=== PATIENT | male | born 1950 | race Caucasian/White ===

== ENCOUNTER → 2019-07-01 | Outpatient (CLI) | payer OTHER, MEDICARE | LOC: M.MRI 08:27 | DX: S83.281A Other tear of lateral meniscus, current injury, right knee, initial encounter (principal); M17.11 Unilateral primary osteoarthritis, right knee; M25.461 Effusion, right knee; R60.0 Localized edema; M25.761 Osteophyte, right knee; X58.XXXA Exposure to other specified factors, initial encounter; Y93.89 Activity, other specified; Y92.89 Other specified places as the place of occurrence of the external cause; Y99.8 Other external cause status ==

== ENCOUNTER 2019-09-24 06:49 | Observation (INO) | payer OTHER, MEDICARE ==
[2019-09-12 08:59] LABS: HEMATOCRIT 50.2 % (42.0-52.0); HEMOGLOBIN 17.5 gm/dL (14.0-18.0); MCH 29.2 pg (26.0-34.0); MCHC 34.8 g/dL (28.0-37.0); MCV 83.8 fL (80.0-100.0); RBC 5.98 mil/uL (4.50-6.00); RDW-CV 13.6 % (10.5-14.5); WBC 7.7 thou/uL (4.0-11.0)
[2019-09-12 09:09] LABS: INR 1.1; PROTIME 11.2 Seconds (9.20-11.50)
[2019-09-12 09:24] LABS: ALBUMIN 3.9 g/dL (3.4-5.0); CALCIUM 8.8 mg/dL (8.5-10.1); CREATININE 1.1 mg/dL (0.6-1.3); POTASSIUM 3.7 mmol/L (3.5-5.1); TOTAL BILIRUBIN 0.9 mg/dL (<0.1-1.0); TOTAL PROTEIN 7.8 g/dL (6.4-8.2)
[2019-09-12 09:40] LABS: URINE BILIRUBIN NEGATIVE (Negative); URINE BLOOD NEGATIVE (Negative); URINE CLARITY CLEAR; URINE COLOR YELLOW; URINE GLUCOSE-RANDOM NEGATIVE (Negative); URINE KETONES NEGATIVE (Negative); URINE LEUKOCYTES-REFLEX NEGATIVE (Negative); URINE NITRITE-REFLEX NEGATIVE (Negative); URINE PROTEIN NEGATIVE (Negative); URINE UROBILINOGEN 0.2 E.U./dl (0.2-1.0)
--- NOTE | 2019-09-12 11:21 | EKG ---
[place] [address] ELECTROCARDIOGRAM REPORT Name: DAVID LOPEZ Room: PRE IN .R.#: [id number] Admission: Attend Phys: Marilee Giang Discharge: Date of : 54 Report #: [id number] THIS REPORT FOR: //name// [facility] Test Date: 2019-09-12 Test Time: 09:16:41 Pat Name: DAVID LOPEZ Department: Room: Gender: M Data Center Engineer: : 1950 Requested By: Emery Wagner Order Number: [id number] Reading MD: Bar Butterfield Measurements Intervals [place] Rate: 80 P: [place]: QRS: 35 QRSD: 97 T: 30 QT: 374 QTc: 432 Interpretive Statements Atrial fibrillation Borderline low voltage, extremity leads No previous ECG available for comparison Electronically Signed On 09-12-2019 11:20:55 CDT by Bar Butterfield [email or web address] <ELECTRONICALLY SIGNED> By: Bar Butterfield MD, [facility] 09/12/19 1120 0916 09 Bar Butterfield MD, FACC /EPI
[~2019-09-24] VITALS: Ht 180.3 cm; Wt 113.9 kg
[~2019-09-24 06:49] MED LIST: ASPIR 8181 MG PO; MULTIVITAMINS PO; SIMVASTATIN20 MG PO; UROXATRAL PO; ZESTRIL20 MG PO
[2019-09-24 11:45] VITALS: BP 109/65
[2019-09-24 16:00] VITALS: BP 126/78
--- NOTE | 2019-09-24 17:52 | 2DMMODE ---
[place] [address] 2 D/M-MODE ECHOCARDIOGRAM Name: JESSICADAVID Room: [address] Sofia#: [id number] Admission: 09/24/19 Attend Phys: Cj Schaefer Discharge: Date of : 54 Date of Service: 09/24/19 1752 Report #: [id number] THIS REPORT FOR: //name// APPROVED REPORT Study performed: 09/24/2019 14:58:53 EXAM: Comprehensive 2D, Doppler, and color-flow Echocardiogram Patient Location: In-Patient Room #: 108 Status: routine BSA: 2.32 HR: 78 bpm BP: 109/65 mmHg Rhythm: Atrial Fibrillation Other Information Study Quality: Good Indications Atrial Fibrillation 2D Dimensions IVSd: 8.28 (7-11mm) LVOT Diam: 23.25 (18-24mm) LVDd: 42.37 mm PWd: 11.10 (7-11mm) Ascending Ao: 33.34 (22-36mm) LVDs: 25.96 (25-40mm) Aortic Root: 34.94 mm Volumes Left Atrial Volume (Systole) LA ESV Index: 40.40 mL/m2 Aortic Valve AoV Peak Gurdeep.: 1.24 m/s AO Peak Gr.: 6.16 mmHg LVOT Max P.71 mmHg AO Mean Gr.: 3.41 mmHg LVOT Mean P.13 mmHg LVOT Max V: 1.09 m/s AO V2 VTI: 24.85 cm LVOT Mean V: 0.66 m/s SHRUTHI (VTI): 3.87 cm2 LVOT V1 VTI: 22.63 cm TDI Medial E' Gurdeep.: 0.12 m/s Lateral E' Gurdeep.: 0.14 m/[place] [address] 2 D/M-MODE ECHOCARDIOGRAM Name: DAVID LOPEZ Room: [address]#: [id number] Admission: 09/24/19 Attend Phys: Cj Schaefer Discharge: Date of : 54 Date of Service: 09/24/19 175 Report #: [id number] Pulmonary Valve PV Peak Gurdeep.: 0.92 m/s PV Peak Gr.: 3.36 mmHg Tricuspid Valve RAP Estimate: 5.00 mmHg TR Peak Gr.: 22.33 mmHg RVSP: 27.00 mmHg PA Pressure: 27.00 mmHg Left Ventricle The left ventricle is normal size. There is normal LV segmental wall motion. There is normal left ventricular wall thickness. Left ventricular systolic function is normal. LVEF is 60-65%. This study is not technically sufficient to allow evaluation of the LV diastolic function due to atrial fibrillation. Right Ventricle Right ventricle is mildly dilated. The right ventricular systolic function is normal. Atria Left atrium is mildly dilated. Right atrium is dilated. Aortic Valve The aortic valve is normal in structure. No aortic regurgitation is present. There is no aortic valvular stenosis. Mitral Valve The mitral valve is normal in structure. Trace mitral regurgitation. No evidence of mitral valve stenosis. Tricuspid Valve The tricuspid valve is normal in structure. Trace tricuspid regurgitation. No pulmonary hypertension. Pulmonic Valve The pulmonary valve is normal in structure. There is no pulmonic valvular regurgitation. Great Vessels The aortic root is normal in size. IVC is normal in size and collapses >50% with inspiration. Pericardium There is no pericardial effusion. <Conclusion> [place] [address] 2 D/M-MODE ECHOCARDIOGRAM Name: DAVID LOPEZ Room: [address] Sofia#: [id number] Admission: 09/24/19 Attend Phys: Cj Schaefer Discharge: Date of : 54 Date of Service: 09/24/19 1752 Report #: [id number] The left ventricle is normal size. There is normal left ventricular wall thickness. Left ventricular systolic function is normal. LVEF is 60-65%. Left atrium is mildly dilated. Right atrium is dilated. Right ventricle is mildly dilated. Trace mitral regurgitation. Trace tricuspid regurgitation. No pulmonary hypertension. IVC is normal in size and collapses >50% with inspiration. <ELECTRONICALLY SIGNED> By: Bar Butterfield MD, FACC 09/24/191751 51 51 Bar Butterfield MD, FACC /INF
--- NOTE | 2019-09-24 18:09 | NUR ---
PATIENT ARRIVED TO UNIT AT 1145. ALERT AND ORIENTED X4. ASSESSMENT COMPLETED AND CHARTED. VSS ON 3 LITERS 02. PAIN MANAGED WITH ORAL PAIN MEDICATION. NO COMPLAINTS OF NAUSEA OR SOA. WORKED WITH THERAPIES TODAY AND PROGRESSED TOWARD GOALS. FALL PRECAUTIONS IN PLACE. CALL LIGHT WITHIN REACH. HOURL YROUNDS COMPLETED. NURSING WILL CONTINUE TO MONITOR.
[2019-09-25] VITALS: BP 133/113
[2019-09-25 04:00] VITALS: BP 101/56
[2019-09-25 05:27] LABS: HEMATOCRIT 43.4 % (42.0-52.0); HEMOGLOBIN 14.6 gm/dL (14.0-18.0)
[2019-09-25 05:47] LABS: CHOLESTEROL 158 mg/dL (<200); HDL CHOLESTEROL 41 mg/dL (>40); LDL CHOLESTEROL 106 mg/dL (<100); TC:HDL 3.9 Ratio (Not establshd); TRIGLYCERIDE 59 mg/dL (<150); VLDL 12 mg/dL (<40)
[2019-09-25 05:49] LABS: SERUM ASSESSMENT Clear
--- NOTE | 2019-09-25 07:08 | NUR ---
PATIENT HAS SLEPT OFF AND ON DURING THE NIGHT. VSS ON 3L 02 VIA NASAL CANNULA AND CAPNO IN PLACE. PAIN HAS BEEN WELL CONTROLLED. MEDICATIONS GIVEN ORDERED AND CHARTED. ASSESSMENT CHARTED. PATIENT PLACE ON CPM THIS AM AND TOLERATING WELL. DRESSING TO RIGHT KNEE IS C/D/I AND JOSE ANTONIO PETIT, SCD'S AND POLAR PACK IN PLACE. HEMOVAC IN PLACE WITH MODERATE AMOUNT OF DRAINAGE. IV IN LEFT FOREARM-SL. FALL PRECAUTIONS IN PLACE AND HOURLY ROUNDS MADE. WILL CONTINUE WITH PLAN OF CARE AND NURSING TO MONITOR.
--- NOTE | 2019-09-25 09:42 | NUR ---
RECIEVED O.T. EVAL AND TX ORDERS. WILL DEFER TO P.T. AT THIS TIME. PLEASE ORDER FURTHER O.T. SERVICES IF NEEDED.
--- NOTE | 2019-09-25 12:00 | NUR ---
SPOKE WITH PT.AND ,TREMAYNE. SHE HAD BEEN TALKING WITH [employer] TO SEE IF PT.COULD COME TO [facility] OUTPT.THERAPY. THEY SAID HE COULD. THEY ARE IN NETWORK AND COST PER EACH VISIT WOULD BE $30. PT.WOULD LIKE TO DO THIS, INSTEAD OF HOME HEALTH. CM PUT IN CALL TO OFFICE. THEY WILL CALL BACK. [facility] [employer] CALLED IN TO HIS PHARMACY , WRITTEN. COPAY IS $30.NEEDS A FRONT WHEEL WALKER FOR HOME. ELIZABETH/[employer] FOR PT. 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 PT.INFORMED. TO SEE PT.PRIOR TO DISCHARGE.
[2019-09-25] MEDS ORDERED: XARELTO10 MG PO (12:24)
[2019-09-25] MEDS ORDERED: CARVEDILOL12.5 MG PO (12:24)
[2019-09-25] MEDS ORDERED: HYDROCODON-ACE1 EAC7 PO (12:26)
[2019-09-25 12:27] VITALS: BP 101/56
--- NOTE | 2019-09-25 15:30 | NUR ---
ASSUMED CARE OF PATIENT AT APPROX 0730. ALERT AND ORIENTED X4. ASSESSMENT COMPLETED AND CHARTED. VSS ON ROOM AIR. PAIN MANAGED WITH ORAL PAIN MEDICATIONS. ANTIBIOTICS INFUSED ORDERED. NO OTHER COMPLAINTS THIS SHIFT. PATIENT WORKED WELL WITH THERAPIES AND PROGRESSED TOWARD GOALS. PATIENT DISCHARGED AT 1530 WITH ALL PERSONAL BELONGINGS, PRESCRIPTIONS AND DISCHARGE INFORMATION.
--- NOTE | 2019-09-25 16:38 | CON ---
[address] [address] CONSULTATION Name: DAVID LOPEZ Room: [address] Jimy Black#: [id number] Admission: 09/24/19 Attend Phys: Marilee Giang Discharge: 09/25/19 Date of : 54 Report #: [id number] THIS REPORT FOR: //name// CC: Allyson Schaefer DATE OF SERVICE: 09/25/2019 HISTORY OF PRESENT ILLNESS: The patient is a 68-year-old white male who I was asked to see in the hospital today after he was noted to be in atrial fibrillation. The patient has no previous history of heart disease. He does have a long history of hypertension, hyperlipidemia. Recently, he complained of knee pain. He was scheduled to undergo knee surgery. As part of a preop evaluation, he apparently underwent pharmacologic nuclear stress test at [facility] by [facility] about a year ago. The stress test apparently showed no significant coronary artery disease and he was felt to have a low risk for cardiac complications of surgery. The patient was then admitted here to [facility] 2 days ago and underwent knee replacement surgery. Of note is that the patient's preoperative ECG on 09/12/2019 showed atrial fibrillation. ECG today again shows atrial fibrillation. Cardiology consultation was requested. The patient is not very active, but denies any significant chest pain, shortness of breath, palpitations, syncope, bleeding. PAST MEDICAL HISTORY: He has had previous tonsillectomy, left knee replacement, hypertension, hyperlipidemia. MEDICATIONS: Consist of lisinopril HCT, simvastatin and Flomax. ALLERGIES: He has no known drug allergies. FAMILY HISTORY: Negative for heart disease. SOCIAL HISTORY: Retired painter structural steel. He and his live here in [place]. He quit smoking years ago, rarely drinks alcohol. REVIEW OF SYSTEMS: He has had no history of stroke, asthma, liver disease, GI bleeding, kidney disease, cancer, psychiatric illness, chronic skin condition. PHYSICAL EXAMINATION: GENERAL: Revealed an elderly male sitting in a chair. He appeared in no distress. VITAL SIGNS: His blood pressure 126/80, pulse 70, he is afebrile. HEENT: He was anicteric. Conjunctivae pink. Mucous membranes moist. NECK: Veins nondistended. No carotid bruits. Neck supple. CHEST: [place] [id number] CONSULTATION Name: JESSICADAVID [address]: [address] [id number] Admission: 09/24/19 Attend Phys: Marilee Giang Discharge: 09/25/19 Date of : 54 Report #: [id number] CARDIOVASCULAR: Irregular rhythm. No significant murmurs. ABDOMEN: Soft. EXTREMITIES: Had no pitting edema. SKIN: Cool and dry. NEUROLOGIC: Nonfocal. His preoperative ECG that was done here at [facility] on 09/12/2019 appears to show atrial fibrillation with controlled ventricular response rate. No significant ST or T-wave changes. Postop ECG done today again shows atrial fibrillation with controlled ventricular response rate. The patient had an echocardiogram done yesterday that showed left ventricular hypertrophy, 65%, biatrial enlargement. LABORATORY DATA: Potassium 3.7, creatinine 1.1. Cholesterol 158, triglyceride 59, HDL 41, LDL 106. TSH 1.7. White blood cell count 7.7, hemoglobin is 14.6. IMPRESSION AND RECOMMENDATIONS: 1. Atrial fibrillation, asymptomatic. I suspect the patient has sick sinus syndrome since the rate is controlled despite the fact that he is on no medications that slow atrioventricular node conduction. If he develops bradycardia, he would require pacemaker. The patient has a SKY score of 2. I would consider anticoagulation. The patient recently started on Xarelto post-knee surgery. After it is safe from a surgical standpoint, I think it is reasonable to increase his Xarelto to 20 mg a day to prevent an embolic event from permanent atrial fibrillation. 2. Hypertension. The patient is on an LUCAS inhibitor and diuretic. 3. Hyperlipidemia. The patient is on a statin drug. 4. Recent knee surgery. The patient is currently undergoing rehabilitation. <ELECTRONICALLY SIGNED> By: Giuliano Plunkett MD, FACC 09/25/19 1638 1344 [id number] Plunkett MD, FACC /nt
--- NOTE | 2019-09-25 16:48 | EKG ---
[place] [address] ELECTROCARDIOGRAM REPORT Name: JESSICADAVID Room: [address] M.R.#: [id number] Admission: 09/24/19 Attend Phys: Marilee Giang Discharge: 09/25/19 Date of : 54 Report #: [id number] THIS REPORT FOR: //name// [facility] Test Date: 2019-09-25 Test Time: 11:10:36 Pat Name: DAVID LOPEZ Department: Room: [address] Gender: M Resident Care Coordinator: : 1950 Requested By: Eleanor Echeverria Order Number: [id number] Adenike MD: Giuliano Plunkett Measurements Intervals [place] Rate: 72 P: [place]: QRS: 67 QRSD: 106 T: 35 QT: 404 QTc: 443 Interpretive Statements Atrial fibrillation Borderline low voltage, extremity leads Compared to ECG 09/12/2019 09:16:41 No significant changes Electronically Signed On 09-25-2019 16:48:44 PRESSURIZER by Giuliano Plunkett [email or web address] <ELECTRONICALLY SIGNED> By: Giuliano Plunkett MD, [facility] 09/25/19 1648 1110 111 Giuliano Plunkett MD, [facility] /EPI
--- NOTE | 2019-10-01 10:47 | OP ---
[facility] [address] [place] [address] OPERATIVE REPORT Name: JESSICADAVID MELENDEZ Room: [address] Jimy Black#: [id number] Admission: 09/24/19 Attend Phys: Marilee Giang Discharge: 09/25/19 Date of : 54 Report #: [id number] THIS REPORT FOR: //name// CC: Allyson Schaefer DATE OF SERVICE: 09/24/2019 PREOPERATIVE DIAGNOSIS: Right knee osteoarthritis. POSTOPERATIVE DIAGNOSIS: Right knee osteoarthritis. PROCEDURE: Right total knee arthroplasty. SURGEON: Emery Wagner II, DO. DOOR CLOSER: KEVIN Moreira. ANESTHESIA: General endotracheal. ESTIMATED BLOOD LOSS: 50 mL. ANTIBIOTICS: Ancef preoperatively. DRAINS: Medium Hemovac. COMPLICATIONS: None. CONDITION OF THE PATIENT: Stable to recovery room. IMPLANTS: Listed in operative record and progress note. BRIEF HISTORY: The patient is seen in preoperative area. Preop H and P was performed. Site was marked, questions were answered. Risks and benefits were discussed with the patient in detail about surgery. The patient wished to proceed, assuming all risks. DESCRIPTION OF PROCEDURE: The patient was taken to the operative suite and placed supine on the operative table, given appropriate anesthesia. A well-padded tourniquet applied to upper thigh, which was inflated to 300 mmHg after gravity exsanguination. The operative knee was sterilely prepped and draped. Surgery began by midline incision. This was carried down to the subcutaneous tissues. A medial parapatellar arthrotomy was performed and carried down to bone. The patella was then everted and excess soft tissue was removed from around the femur. Femoral cutting block was then applied, checked [facility] [address] [place] [id number] OPERATIVE REPORT Name: DAVID LOPEZ Room: [address] Jimy Black#: [id number] Admission: 09/24/19 Attend Phys: Marilee Giang Discharge: 09/25/19 Date of : 54 Report #: [id number] with a drop declan for rotational alignment, pinned in appropriate position and appropriate cuts were made. A 4-in-1 cutting block was then applied, checked for rotational alignment, pinned in appropriate position and appropriate cuts were made. The tibia was then exposed. Excess meniscus was removed. Retractor was placed on collateral ligaments. The tibial cutting block was then applied, pinned in appropriate position, checked with drop declan for rotational alignment and slope and appropriate cut was made. The tibial bone was removed. The tibial base plate was then applied, checked for rotational alignment with the drop declan and pinned in appropriate position. The femur was then applied and box cut was reamed. This was then trialed with appropriate spacer, which showed excellent fit and fill and excellent stability of the knee through all ranges of motion. The patella was then reamed in appropriate fashion and sized to appropriate size. Three peg holes were drilled and it was then trialed and showed excellent flexion, extension, excellent tracking of the patella within the groove. These trials were removed. The tibia was punched in appropriate fashion. Bone ends were cleansed with Pulsavac irrigation and cement was mixed and applied to final implants. These were then malleted in position, held the knee in extension and compressed to allow cement to cure. After it cured, excess was removed using a [place] and osteotome. Wound was then copiously irrigated and the final spacer was then malleted into position. The tourniquet was deflated. Hemostasis was maintained with electrocautery. Pain cocktail was injected. PRP gel was sprayed throughout the internal aspects of the knee. Medium Hemovac drain was applied. The capsule was closed with #2 FiberWire and #1 Vicryl in [id number] fashion. Skin was closed with 2-0 Vicryl and running 3-0 Monocryl. Dermabond and sterile dressing applied. Alexei wrap and PolarCare applied. The patient transported to recovery room in stable condition. Counts were correct throughout the procedure. <ELECTRONICALLY SIGNED> By: Emery Wagner II, DO 10/01/19 1047 [id number] Wagner II, DO /nt
== END 2019-09-25 15:30 | disposition home or self-care (01) ==
LOC: M.ORTHSURG 06:49 → M.TBA 07:06 → M.ORTHSURG 10:07 → EDSTATUS 15:29 → M.ORTHSURG 15:36
PROVIDERS: Orthopaedic Surgery; ADMIT Internal Medicine
DX: M17.11 Unilateral primary osteoarthritis, right knee (principal); I10 Essential (primary) hypertension; I48.91 Unspecified atrial fibrillation; E78.5 Hyperlipidemia, unspecified; Z79.82 Long term (current) use of aspirin; Z79.899 Other long term (current) drug therapy; Z87.891 Personal history of nicotine dependence; Z96.652 Presence of left artificial knee joint

== ENCOUNTER → 2019-10-03 | Outpatient (CLI) | payer OTHER, MEDICARE ==
[~2019-10-03] MED LIST changes: +CARVEDILOL12.5 MG PO; +HYDROCODON-ACE1 EAC7 PO; +XARELTO10 MG PO
== END ==
LOC: M.RAD 13:12
DX: M25.561 Pain in right knee (principal); Z96.651 Presence of right artificial knee joint

== ENCOUNTER → 2019-11-01 | Outpatient (CLI) | payer OTHER, MEDICARE | LOC: M.RAD 10:11 | DX: M25.461 Effusion, right knee (principal); M25.861 Other specified joint disorders, right knee; Z96.651 Presence of right artificial knee joint ==

== ENCOUNTER → 2020-06-08 | Outpatient (CLI) | payer OTHER ==
[2020-06-08 07:06] LABS: ABSOLUTE BASOPHILS 0.1 thou/uL (0.0-0.2); ABSOLUTE EOSINOPHILS 0.2 thou/uL (0.0-0.7); ABSOLUTE LYMPHOCYTES 2.5 thou/uL (0.8-5.3); ABSOLUTE MONOCYTES 0.6 thou/uL (0.0-1.2); ABSOLUTE NEUTROPHILS 3.8 thou/uL (1.6-8.1); EOSINOPHILS 2.7 %; HEMATOCRIT 49.7 % (42.0-52.0); HEMOGLOBIN 17.2 gm/dL (14.0-18.0); LYMPHOCYTES 34.8 %; MCH 29.1 pg (26.0-34.0); MCHC 34.6 g/dL (28.0-37.0); MONOCYTES 8.3 %; MPV 7.6 fl. (7.2-11.1); NUCLEATED RBCS 0 /100WBC; PLATELET COUNT* 261 thou/uL (150-400); POLYS 53.2 %; RBC 5.91 mil/uL (4.50-6.00); RDW-CV 13.9 % (10.5-14.5); WBC 7.1 thou/uL (4.0-11.0)
[2020-06-08 07:26] LABS: ALBUMIN 3.8 g/dL (3.4-5.0); ALKALINE PHOSPHATASE 84 U/L (46-116); ANION GAP 11 mmol/L (7-16); BUN 9 mg/dL (7-18); CALCIUM 8.6 mg/dL (8.5-10.1); CHLORIDE 104 mmol/L (98-107); CHOLESTEROL 169 mg/dL (<200); CO2 25 mmol/L (21-32); GLUCOSE 113 mg/dL (70-99); HDL CHOLESTEROL 41 mg/dL (>40); LDL CHOLESTEROL 105 mg/dL (<100); POTASSIUM 3.8 mmol/L (3.5-5.1); SGOT 31 U/L (15-37); SGPT 45 U/L (30-65); SODIUM 140 mmol/L (136-145); TC:HDL 4.1 Ratio (Not establshd); TOTAL BILIRUBIN 0.9 mg/dL (<0.1-1.0); TOTAL PROTEIN 7.7 g/dL (6.4-8.2); TRIGLYCERIDE 118 mg/dL (<150); VLDL 24 mg/dL (<40)
[2020-06-08 07:29] LABS: SERUM ASSESSMENT Clear
== END ==
LOC: M.LAB 06:44
PROVIDERS: ATTEND Nurse Practitioner
DX: I48.91 Unspecified atrial fibrillation (principal); I10 Essential (primary) hypertension; E78.5 Hyperlipidemia, unspecified; Z13.1 Encounter for screening for diabetes mellitus

== ENCOUNTER → 2020-12-02 | Outpatient (CLI) | payer OTHER ==
[2020-12-02 06:57] LABS: CHOLESTEROL 145 mg/dL (<200); HDL CHOLESTEROL 40 mg/dL (>40); LDL CHOLESTEROL 83 mg/dL (<100); TC:HDL 3.6 Ratio (Not establshd); TRIGLYCERIDE 113 mg/dL (<150); VLDL 23 mg/dL (<40)
[2020-12-02 06:58] LABS: SERUM ASSESSMENT Clear
== END ==
LOC: M.LAB 06:29
PROVIDERS: ATTEND Nurse Practitioner
DX: E78.5 Hyperlipidemia, unspecified (principal)